=== PATIENT | female | born 1990 | race African-American/Black ===

== ENCOUNTER 2017-02-28 18:50 | Emergency (ER) | payer MEDICAID ==
[2017-02-28 19:15] LABS: BASOPHILS 0.2 % (0-2); EOSINOPHILS 0.4 % (0-7); HEMATOCRIT 40.6 % (36.0-48.0); HEMOGLOBIN 13.6 g/dL (12-16); IMMATURE GRANULOCYTES 0.4 % (0-5); LYMPHOCYTES 44.2 % (15-50); MCH 27.8 pg (26.0-34.0); MCHC 33.5 g/dL (31.0-37.0); MEAN PLATELET VOLUME 11.6 fL (7.4-10.4); MONOCYTES 7.2 % (2-11); NEUTROPHILS 47.6 % (40-80); PLATELET COUNT 234 10x3/uL (130-400); RBC 4.89 10x6/uL (4.00-5.40); RDW 13.7 % (11.5-14.5); WBC 11.2 10x3/uL (4.8-10.8)
[2017-02-28 19:29] LABS: ALBUMIN 4.1 g/dL (3.4-5.0); ANION GAP 17.2 mmol/L (8-16); BILIRUBIN - TOTAL 0.71 mg/dL (0.2-1.3); CALCIUM 9.7 mg/dL (8.5-10.1); CARBON DIOXIDE 22.7 mmol/L (21.0-32.0); PROTEIN - SERUM 8.3 g/dL (6.4-8.2)
[2017-02-28 19:37] LABS: POTASSIUM - SERUM 2.9 mmol/L (3.5-5.1)
[2017-02-28 21:25] LABS: HCG URINE NEGATIVE (NEGATIVE)
[2017-02-28 21:28] LABS: APPEARANCE HAZY (CLEAR); BACTERIA MODERATE /hpf (NONE SEEN); BILIRUBIN NEGATIVE (NEGATIVE); COLOR YELLOW (YELLOW); GLUCOSE NEGATIVE (NEGATIVE); KETONE MODERATE mg/dL (NEGATIVE); MUCUS <1+ /lpf (NONE SEEN); NITRITE NEGATIVE (NEGATIVE); PROTEIN NEGATIVE (NEGATIVE); RED CELLS - URINE 0-5 /hpf (0-5); UROBILINOGEN NORMAL (NORMAL); WHITE CELLS - URINE 0-5 /hpf (0-5)
== END 2017-03-01 00:20 | disposition home or self-care (01) ==
LOC: D.ER 18:50
PROVIDERS: Emergency Medicine; Family Medicine
DX: R11.10 Vomiting, unspecified (principal); R42 Dizziness and giddiness; H81.399 Other peripheral vertigo, unspecified ear; E87.6 Hypokalemia